=== PATIENT | female | born 1985 | race Caucasian/White ===

== ENCOUNTER 2017-09-03 10:05 | Outpatient (CLI) | payer BC, OTHER, SELFPAY ==
[~2017-09-03 10:05] MED LIST: Iopamidol 370 76% 100 ML VIAL ONE
--- NOTE | 2017-09-03 11:41 | CT ---
CT OF THE ABDOMEN AND PELVIS WITH IV CONTRAST: INDICATION: Mid abdominal pain in the umbilical region for the past 6 months. History of hysterectomy. TECHNIQUE: Multiple CT images were obtained in the abdomen and pelvis with IV and enteric contrast. The patient received 100 cc of Isovue 370 for the exam. COMPARISON: No comparisons are available. FINDINGS: ABDOMEN: The lung bases are clear. No focal hepatic lesion is evident. The liver, pancreas, and adrenal glands are normal appearing. T he kidneys are normal-appearing. No free fluid or enlarged lymph nodes are evident. The partially contrast-filled stomach and duodenum appear within normal limits. No apparent wall thi ckening is evident. The small bowel is of normal caliber. The TI is normal-appearing. There is a n ormal appendix in the right lower quadrant of the abdomen. PELVIS: There are 2 involuting cysts involving the left adnexa measuring 1.2 and 1.4 cm respectively. The ut erus is surgically absent. The bladder is decompressed. There is a mild amount of retained stool wi thin the colon. No free fluid is evident. OSSEOUS STUCTURES: No definite acute osseous abnormality is evident. IMPRESSION: No CT explanation for the patient's mid abdominal pain. POS: [facility]
== END 2017-09-03 10:06 | disposition home or self-care (01) ==
LOC: SCSCT 10:05
PROVIDERS: ATTEND Internal Medicine Gastroenterology
DX: K21.9 Gastro-esophageal reflux disease without esophagitis (principal); R10.33 Periumbilical pain
CPT/HCPCS: 74177

== ENCOUNTER 2019-05-01 11:48 | Outpatient (CLI) | payer BC ==
[2019-05-01 12:15] LABS: #Basophils 0.1 thou/uL (0.0-0.2); #Eosinphils 0.1 thou/uL (0.0-0.7); #Lymphocytes 1.9 thou/uL (1.20-3.40); #Monocytes 0.5 thou/uL (0.11-0.59); %Basophils 1.2 % (0.0-1.0); %Eosinophils 1.5 % (0.0-10.0); %Lymphocytes 25.4 % (21.0-51.0); %Monocytes 6.1 % (0.0-10.0); %Neutrophils 65.8 % (42.0-75.0); Hemoglobin 14.2 g/dL (12.0-16.0); Mean Corpuscular HGB CONC 34.4 g/dL (32.0-36.0); Mean Corpuscular Hemoglobin 29.2 pg (27.0-31.0); Mean Corpuscular Volume 84.9 fL (78.0-98.0); Mean Platelet Volume 6.6 fL (7.4-10.4); Platelet Count 256 thou/uL (130-400); RBC Distribution Width 12.8 % (11.5-14.5); Red Blood Cell (RBC) Count 4.88 mill/uL (4.20-5.40); White Blood Cell (WBC) Count 7.6 thou/uL (4.8-10.8)
[2019-05-01 12:47] LABS: ALT (SGPT) 32 U/L (8-55); AST (SGOT) 22 U/L (5-34); Albumin 4.9 g/dL (3.5-5.0); Alkaline Phosphatase 82 U/L (40-150); Anion Gap 16 mmol/L (10-20); BUN (Urea Nitrogen) 15 mg/dL (7.0-18.7); Bilirubin, Total 0.5 mg/dL (0.2-1.2); Calc. Creatinine Clearance 0 mL/min (70-130); Calcium 10.2 mg/dL (7.8-10.44); Carbon Dioxide 22 mmol/L (22-29); Chloride 105 mmol/L (98-107); Estimated GFR-MDRD 70; Globulin 2.5 g/dL (2.4-3.5); Glucose 88 mg/dL (70-105); Potassium 4.1 mmol/L (3.5-5.1); Protein, Total 7.4 g/dL (6.0-8.3); Sodium 139 mmol/L (136-145)
--- NOTE | 2019-05-01 17:03 | HP ---
HISTORY OF PRESENT ILLNESS: Lizzy Robin is a 34-year-old female, planned a trip to [facility] later this month, was getting vaccinations and reported intermittent right upper quadrant pain, epigastric pain, back radiation, and nausea to her primary care physician, Dr. Michael Coronel. He suspected biliary disease, ordered gallbladder ultrasound obtained at [facility] revealing a small amount of sludge in the gallbladder, bile duct 4 mm. ALLERGIES: NONE. SOCIAL HISTORY: Tobacco, none. Alcohol, none. MEDICATIONS: 1. Omeprazole. 2. Wellbutrin. ALLERGIES: 1. PENICILLIN. 2. STEROID SHOTS. PAST SURGICAL HISTORY: Total abdominal hysterectomy and bilateral salpingo-oophorectomy in 2007, for endometriosis. She has since found on imaging that she has a small ovarian remnant. Abdominoplasty, breast augmentation, and knee surgery, right. PAST MEDICAL HISTORY: GERD, for which she takes omeprazole. FAMILY HISTORY: Noncontributory. REVIEW OF SYSTEMS: Noncontributory. PHYSICAL EXAMINATION: VITAL SIGNS: 200 pounds, 64 inches, 34 BMI. Blood pressure 110/69, heart rate 82, temperature 97.5 degrees. HEAD, EARS EYES, NOSE AND THROAT: Unremarkable. Sclerae nonicteric. LUNGS: Clear to auscultation. CARDIAC: Regular rate and rhythm without murmur or gallop. ABDOMEN: Soft and nontender. No masses. Changes of abdominoplasty incisions. SKIN: Nonjaundiced. EXTREMITIES: Unremarkable. NEUROLOGIC: Intact without deficit. ASSESSMENT AND PLAN: Symptomatic cholelithiasis and cholecystitis, chronic. Recommend laparoscopic video cholecystectomy. Risks of infection, bleeding, and visceral and biliary injury were discussed. She consents. Questions were answered. Job ID: [id number]
== END 2019-05-01 11:49 | disposition home or self-care (01) ==
LOC: LABBT 11:48
PROVIDERS: ATTEND Specialist
DX: Z01.818 Encounter for other preprocedural examination (principal); K80.20 Calculus of gallbladder without cholecystitis without obstruction
CPT/HCPCS: 80053; 85025

== ENCOUNTER 2019-05-05 05:46 | Day surgery (SDC) | payer BC ==
[2019-05-01 12:18] VITALS: BMI 34.3
--- NOTE | 2019-05-01 17:03 | HP ---
HISTORY OF PRESENT ILLNESS: Lizzy Robin is a 34-year-old female, planned a trip to [facility] later this month, was getting vaccinations and reported intermittent right upper quadrant pain, epigastric pain, back radiation, and nausea to her primary care physician, Dr. Michael Coronel. He suspected biliary disease, ordered gallbladder ultrasound obtained at [facility] revealing a small amount of sludge in the gallbladder, bile duct 4 mm. ALLERGIES: NONE. SOCIAL HISTORY: Tobacco, none. Alcohol, none. MEDICATIONS: 1. Omeprazole. 2. Wellbutrin. ALLERGIES: 1. PENICILLIN. 2. STEROID SHOTS. PAST SURGICAL HISTORY: Total abdominal hysterectomy and bilateral salpingo-oophorectomy in 2007, for endometriosis. She has since found on imaging that she has a small ovarian remnant. Abdominoplasty, breast augmentation, and knee surgery, right. PAST MEDICAL HISTORY: GERD, for which she takes omeprazole. FAMILY HISTORY: Noncontributory. REVIEW OF SYSTEMS: Noncontributory. PHYSICAL EXAMINATION: VITAL SIGNS: 200 pounds, 64 inches, 34 BMI. Blood pressure 110/69, heart rate 82, temperature 97.5 degrees. HEAD, EARS EYES, NOSE AND THROAT: Unremarkable. Sclerae nonicteric. LUNGS: Clear to auscultation. CARDIAC: Regular rate and rhythm without murmur or gallop. ABDOMEN: Soft and nontender. No masses. Changes of abdominoplasty incisions. SKIN: Nonjaundiced. EXTREMITIES: Unremarkable. NEUROLOGIC: Intact without deficit. ASSESSMENT AND PLAN: Symptomatic cholelithiasis and cholecystitis, chronic. Recommend laparoscopic video cholecystectomy. Risks of infection, bleeding, and visceral and biliary injury were discussed. She consents. Questions were answered. Job ID: [id number]
[2019-05-05] MEDS ORDERED: Ketorolac Tromethamine 30 MG/ML VIAL ONE (06:15)
[2019-05-05] MEDS ORDERED: Bupivacaine/Epinephrine 0.25% 30 ML VIAL ONE (06:33)
[2019-05-05] MEDS ORDERED: Fentanyl 100 MCG/2 ML VIAL ONE ×3 (06:57→08:26)
[2019-05-05] MEDS ORDERED: Levofloxacin 500 mg/D5W 100 ml Premix Bag ONE (06:57)
[2019-05-05] MEDS ORDERED: SUGAMMADEX SODIUM 200 MG/2 ML VIAL ONE (07:50)
[2019-05-05] MEDS ORDERED: HYDROcodone/Acetaminophen 5/325 mg Tablet ONE (09:07)
[2019-05-05] MEDS ORDERED: Morphine 4 MG/ML VIAL ONE (09:07)
[2019-05-05] MEDS ORDERED: PROPOFOL 200 MG/20 ML VIAL ONE (13:43)
[2019-05-05] MEDS ORDERED: Glycopyrrolate 0.2 MG/ML 5 ML SYRINGE ONE (13:43)
[2019-05-05] MEDS ORDERED: Ondansetron PF 4 MG/2 ML Vial ONE (13:43)
[2019-05-05] MEDS ORDERED: ePHEDrine 50 MG/ML VIAL ONE (13:43)
[2019-05-05] MEDS ORDERED: Dexamethasone 20 MG/5 ML VIAL ONE (13:43)
[2019-05-05] MEDS ORDERED: Lidocaine 1% PF 5 ML VIAL ONE (13:43)
[2019-05-05] MEDS ORDERED: PHENYLEPHRINE-NS 100 MCG/ML 10 ML SYRINGE ONE (13:43)
[2019-05-05] MEDS ORDERED: Rocuronium Bromide 10 MG/ML (10ML VIAL) ONE (13:43)
--- NOTE | 2019-05-05 14:37 | OP ---
DATE OF PROCEDURE: 05/05/2019 PREOPERATIVE DIAGNOSES: Acute and chronic cholecystitis and cholelithiasis. POSTOPERATIVE DIAGNOSES: Acute and chronic cholecystitis and cholelithiasis. PROCEDURE PERFORMED: Laparoscopic video cholecystectomy. ANESTHESIA: General, local 0.5% Marcaine with epinephrine 30 mL. DESCRIPTION OF PROCEDURE: The patient was taken to the operating room under general anesthesia. Abdomen was prepared with ChloraPrep and draped in routine fashion. A 0.5% Marcaine with epinephrine were infiltrated in the skin and subcutaneous tissue about each port site. Infraumbilical incision was made. Pneumoperitoneum to 15 mmHg was obtained with a Veress needle, replaced with a 5 port, video laparoscope inserted. Right subxiphoid incision was made and 11 port placed. Right subcostal incision was made at midclavicular entrance line and the 5 port was placed. Fundus of the gallbladder was grasped at the cephalad, infundibulum was grasped and reflected laterally. Liver appeared to be normal. Cystic artery and duct dissected free. Critical view obtained. Cystic artery and duct double clipped proximally and divided, gallbladder dissected free from liver bed. Obtaining good hemostasis prior to division of the final peritoneal attachments. Gallbladder and contents removed, submitted to Pathology. Good hemostasis was ensured in the liver bed and irrigant and pneumoperitoneum evacuated. All instruments were removed and all skin incisions were approximated with interrupted subdermal 4-0 Monocryl and [place] glue applied. The patient tolerated the procedure well. Job ID: [id number]
== END 2019-05-05 10:14 | disposition home or self-care (01) ==
LOC: SDC 05:46
PROVIDERS: ATTEND Specialist
PROC: 0FT44ZZ Resection of Gallbladder, Percutaneous Endoscopic Approach (ICD-10-PCS; principal; 2019-05-05)
DX: K80.12 Calculus of gallbladder with acute and chronic cholecystitis without obstruction (principal); M47.816 Spondylosis without myelopathy or radiculopathy, lumbar region; G47.33 Obstructive sleep apnea (adult) (pediatric); F41.9 Anxiety disorder, unspecified; K21.9 Gastro-esophageal reflux disease without esophagitis; Z79.899 Other long term (current) drug therapy; Z88.0 Allergy status to penicillin; Z88.8 Allergy status to other drugs, medicaments and biological substances; Z99.89 Dependence on other enabling machines and devices
CPT/HCPCS: 88304; J0131; J1885; J1956; J2270; J3010

== ENCOUNTER 2020-03-08 13:33 | Outpatient (CLI) | payer BC ==
--- NOTE | 2020-03-08 15:44 | RAD ---
Radiograph thoracic spine 3 views: HISTORY: 35-year-old female with persistent traumatic mid back pain after fall 2 weeks ago. FINDINGS: Vertebral body heights are maintained, with no evidence of compression fracture. No high-grade discog enic degenerative changes. Alignment is normal. No high-grade scoliosis. Pedicles appear to be grossly intact. IMPRESSION: Negative
== END 2020-03-08 13:34 | disposition home or self-care (01) ==
LOC: SCSRAD 13:33
PROVIDERS: ATTEND Family Medicine
DX: M54.6 Pain in thoracic spine (principal)
CPT/HCPCS: 72072

== ENCOUNTER 2022-09-26 12:26 | Outpatient (CLI) | payer BC | END 2022-09-26 12:27 | disposition home or self-care (01) | LOC: CT 12:26 | PROVIDERS: ATTEND Family Medicine | DX: R10.9 Unspecified abdominal pain (principal) | CPT/HCPCS: 74176 ==